=== PATIENT | female | born 1965 | race Two or more races ===

== ENCOUNTER 2018-08-10 10:14 | Outpatient (CLI) | payer OTHER | END 2018-08-10 15:30 | disposition home or self-care (01) | LOC: SONOGRAMA 10:14 | DX: D21.4 Benign neoplasm of connective and other soft tissue of abdomen (principal) ==

== ENCOUNTER 2018-10-09 05:00 | Day surgery (SDC) | payer OTHER ==
[~2018-10-09 05:00] MED LIST: PROZAC20 MG PO
== END 2018-10-09 10:20 | disposition home or self-care (01) ==
LOC: CIR.AMB 05:00
DX: D17.1 Benign lipomatous neoplasm of skin and subcutaneous tissue of trunk (principal)